=== PATIENT | female | born 1990 | race Caucasian/White ===

== ENCOUNTER 2018-09-26 08:00 | Inpatient (IN) | payer BC ==
[2018-09-26] VITALS (15 sets, daily range): BP systolic 124–153; BP diastolic 61–666; PULSE 71–100; TEMP 98.3–98.9
[~2018-09-26 08:00] MED LIST: BCP TD
--- NOTE | 2018-09-26 13:40 | NUR ---
Late deceleration noted. RN at bedside. SVE per this RN 3-80/-2.Pt repositioned WL to RL. LR bolus infusing. FHR does not return to baseline. Pitocin shut off. O2 applied via simple mask. FSE placed. SVE 80/-2. 1345-Dr. Mcdonnell notified of FHR in the 70-90s. Requested to unit. Pt repositioned to . 1350-Ephedrine 10mg given IV. 1352-Terbutaline given IV. Dr. Mcdonnell at bedside. Pt prepped for emergency . 1354-Pt taken off monitors and transported via bed to main OR for emergency . 1401-Delivery of viable male infant. Apgars 8/9/9. See nursery documentation. 1445-Pt back to room for recovery. Pt stable. Bleeding WNL.
[2018-09-26 22:16] LABS: BASO % 0.2 % (0.0-2.0); EOS # 0.1 (0.0-0.7); EOS % 0.9 % (0-4.0); GRAN # 3.7 (1.4-6.5); GRAN % 65.1 % (42.2-75.2); HEMATOCRIT 37.2 % (37.0-47.0); HEMOGLOBIN 12.2 g/dl (12.5-16.0); LYMPH # 1.4 (1.2-3.4); LYMPH % 24.2 % (20.0-51.0); MEAN CELL VOLUME 98 fl (80.0-100.0); MEAN CORPUSCULAR HEMOGLOBIN 32 pg (27.0-31.0); MEAN CORPUSCULAR HGB CONC 33 g/dl (33.0-37.0); MEAN PLATELET VOLUME 12.3 fl (7.4-10.4); MONO # 0.5 (0.1-0.6); MONO % 8.5 % (1.7-9.3); PLATELET COUNT 153 K/mm3 (130-400); REDCELL DISTRIBUTION WIDTH-CV 14.3 % (11.5-14.5)
[2018-09-27 09:13] LABS: HEMATOCRIT 31.2 % (37.0-47.0); HEMOGLOBIN 10.2 g/dl (12.5-16.0)
[2018-09-27 09:39] VITALS: BP 124/77; PULSE 82; TEMP 97.9
[2018-09-27 17:21] VITALS: BP 136/60; PULSE 96; TEMP 97.6
[2018-09-27 21:30] VITALS: BP 127/63; PULSE 83; TEMP 98.3
[2018-09-28 08:37] VITALS: BP 118/56; PULSE 87; TEMP 98.5
[2018-09-28 16:12] VITALS: BP 110/72; PULSE 95; TEMP 98.1
[2018-09-28 21:40] VITALS: BP 130/70; PULSE 102; TEMP 98
[2018-09-29 07:30] VITALS: BP 127/70; PULSE 87; TEMP 98.6
--- NOTE | 2018-09-29 10:07 | NUR ---
Initial visit; Parents thanked [employer] for offering congratulations and God's blessings for the of their son. catering driver thanked them for choosing [facility].
[2018-09-29] MEDS ORDERED: PERCOCET 325 MG1 TA2 PO (10:09)
[2018-09-29] MEDS ORDERED: IBU600 MG PO (10:09)
--- NOTE | 2018-09-29 13:50 | NUR ---
Patient discharge teaching reviewed and discharge instructions reviewed including appointments and script for percocet. Patient verbalizes understanding. Patient, and infant escorted out to private vehicle.
== END 2018-09-29 14:00 | disposition home or self-care (01) | DRG 788 ==
LOC: OB 08:00 → LDR 08:00 → OB 16:01
PROVIDERS: ADMIT Obstetrics & Gynecology
PROC: 10D00Z1 Extraction of Products of Conception, Low, Open Approach (ICD-10-PCS; principal; 2018-09-26)
PROC: 3E033VJ Introduction of Other Hormone into Peripheral Vein, Percutaneous Approach (ICD-10-PCS; 2018-09-26)
DX: O10.92 Unspecified pre-existing hypertension complicating childbirth (principal); O76 Abnormality in fetal heart rate and rhythm complicating labor and delivery; Z3A.39 39 weeks gestation of pregnancy; Z37.0 Single live birth; O99.214 Obesity complicating childbirth
CPT/HCPCS: J0690; J1885; J2405; J2590; J2704; J2795; J3010; J3105; J7120

== ENCOUNTER 2019-05-16 09:37 | Emergency (ER) | payer BC ==
[~2019-05-16] VITALS: Ht 162.6 cm; Wt 94.1 kg
[~2019-05-16 09:37] MED LIST changes: +IBU600 MG PO; +PERCOCET 325 MG1 TA2 PO
[2019-05-16 09:40] VITALS: BP 148/83; TEMP 97.9
[2019-05-16] MEDS ORDERED: PROCARDIA XL 3030 MG PO (09:43)
[2019-05-16 10:07] LABS: COLLECTION METHOD CLEAN CATCH
[2019-05-16 10:25] LABS: PH 6 (5-8); URINE APPEARANCE Hazy; URINE BACTERIA None Seen /hpf; URINE BILIRUBIN Negative (NEGATIVE); URINE BLOOD 3+ (NEGATIVE); URINE COLOR Yellow; URINE GLUCOSE Negative (NEGATIVE); URINE KETONE Negative (NEGATIVE); URINE LEUKOCYTE ESTERASE Negative (NEGATIVE); URINE NITRATE Negative (NEGATIVE); URINE PROTEIN(semi-quant) Negative (NEGATIVE); URINE UROBILINOGEN Negative (NEGATIVE)
[2019-05-16 10:34] LABS: BASO % 0.7 % (0.0-2.0); EOS # 0.1 (0.0-0.7); EOS % 1.6 % (0-4.0); GRAN # 3.5 (1.4-6.5); GRAN % 59.7 % (42.2-75.2); HEMATOCRIT 42.4 % (37.0-47.0); HEMOGLOBIN 13.8 g/dl (12.5-16.0); LYMPH # 1.6 (1.2-3.4); LYMPH % 27.7 % (20.0-51.0); MEAN CELL VOLUME 94 fl (80.0-100.0); MEAN CORPUSCULAR HEMOGLOBIN 31 pg (27.0-31.0); MEAN CORPUSCULAR HGB CONC 33 g/dl (33.0-37.0); MEAN PLATELET VOLUME 11.3 fl (7.4-10.4); MONO # 0.6 (0.1-0.6); PLATELET COUNT 217 K/mm3 (130-400); RED BLOOD COUNT 4.49 M/mm3 (4.10-5.30); REDCELL DISTRIBUTION WIDTH-CV 12.5 % (11.5-14.5)
[2019-05-16 10:48] LABS: ALBUMIN 4.9 gm/dL (3.5-5.0); BILIRUBIN,TOTAL 0.6 mg/dL (0.0-1.0); C-REACTIVE PROTEIN 1.5 mg/dL (0.0-0.9); CALCIUM 9.8 mg/dL (8.4-10.2); CREATININE, serum 0.63 (0.52-1.25); TOTAL PROTEIN 8.7 gm/dL (6.4-8.2)
[2019-05-16 12:10] VITALS: PULSE 71
== END 2019-05-16 12:11 | disposition home or self-care (01) ==
LOC: COL.ER 09:37
PROVIDERS: Nurse Practitioner
DX: N83.291 Other ovarian cyst, right side (principal); I10 Essential (primary) hypertension; Z90.49 Acquired absence of other specified parts of digestive tract
CPT/HCPCS: Q9967